=== PATIENT | male | born 1945 | race Caucasian/White ===

== ENCOUNTER 2019-03-19 16:15 | Observation (INO) | payer MEDICARE, OTHER ==
[2019-03-19] MEDS ORDERED: Nitroglycerin 2% Ointment 1 INCH/1 GM Packet ONE (16:54)
[2019-03-19] MEDS ORDERED: methylPREDNISolone Sod Succ/PF 125 MG/2 ML VIAL ONE (16:54)
[2019-03-19 16:59] LABS: #Basophils 0.1 thou/uL (0.0-0.2); #Eosinphils 1.4 thou/uL (0.0-0.7); #Lymphocytes 1.8 thou/uL (1.20-3.40); #Monocytes 0.7 thou/uL (0.11-0.59); #Neutrophils 5.3 thou/uL (1.40-6.50); %Basophils 1.4 % (0.0-1.0); %Eosinophils 14.7 % (0.0-10.0); %Lymphocytes 19.1 % (21.0-51.0); %Neutrophils 57.8 % (42.0-75.0); Hemoglobin 11.9 g/dL (14.0-18.0); Mean Corpuscular Hemoglobin 29.8 pg (27.0-31.0); Mean Corpuscular Volume 90.2 fL (78.0-98.0); Mean Platelet Volume 6.9 fL (7.4-10.4); Platelet Count 175 thou/uL (130-400); RBC Distribution Width 15.3 % (11.5-14.5); Red Blood Cell (RBC) Count 4.01 mill/uL (4.70-6.10); White Blood Cell (WBC) Count 9.2 thou/uL (4.8-10.8)
[2019-03-19 17:18] LABS: ALT (SGPT) 18 U/L (8-55); AST (SGOT) 17 U/L (5-34); Albumin 3.9 g/dL (3.4-4.8); Alkaline Phosphatase 74 U/L (40-150); Anion Gap 13 mmol/L (10-20); BUN (Urea Nitrogen) 28 mg/dL (8.4-25.7); Bilirubin, Total 0.2 mg/dL (0.2-1.2); Calc. Creatinine Clearance 0 mL/min (70-130); Calcium 9.3 mg/dL (7.8-10.44); Carbon Dioxide 27 mmol/L (23-31); Chloride 105 mmol/L (98-107); Estimated GFR-MDRD 38; Globulin 2.7 g/dL (2.4-3.5); Glucose 117 mg/dL (83-110); Potassium 4.1 mmol/L (3.5-5.1); Protein, Total 6.6 g/dL (5.8-8.1); Sodium 141 mmol/L (136-145)
--- NOTE | 2019-03-19 17:30 | RAD ---
PORTABLE CHEST: 03/19/19 HISTORY: Dyspnea. COMPARISON: 07/04/15. Mild cardiomegaly. Mild vascular engorgement. No infiltrate or significant effusion. IMPRESSION: No acute process. POS: FA[facility]
[2019-03-19] MEDS ORDERED: Aspirin 325 MG TAB ONE (17:35)
[2019-03-19] MEDS ORDERED: cefTRIAXone\\ROCEPHIN 2 GM VIAL ONE (18:44)
[2019-03-19 20:08] VITALS: BMI 35.7
[2019-03-19 20:40] LABS: Troponin I 0.028 ng/mL (< 0.028)
[2019-03-19] MEDS ORDERED: Acetaminophen 650 MG Suppository PR PRN (21:52)
[2019-03-19] MEDS ORDERED: Ondansetron ODT 4 MG TAB PO PRN (21:52)
[2019-03-19] MEDS ORDERED: Acetaminophen 325 MG TAB PO PRN (21:52)
[2019-03-19] MEDS ORDERED: Senokot S 8.6-50 MG TAB PO PRN (21:52)
[2019-03-19] MEDS ORDERED: Ondansetron PF 4 MG/2 ML Vial IVP PRN (21:52)
[2019-03-19] MEDS ORDERED: Melatonin 3 MG TAB PO SCH (22:00)
[2019-03-19] MEDS ORDERED: Sodium Chloride 0.9% 1,000 ML IV SCH (22:15)
[2019-03-19] MEDS: Benzonatate 100 MG CAP PO SCH (22:23)
[2019-03-19] MEDS ORDERED: Atorvastatin Calcium 20 MG TAB PO SCH (22:30)
[2019-03-19] MEDS ORDERED: Temazepam 15 MG CAP PO PRN (22:39)
[2019-03-19] MEDS ORDERED: Famotidine/PF 20 mg/2ml Vial SLOW IVP SCH (23:15)
[2019-03-19 23:36] LABS: Troponin I 0.027 ng/mL (< 0.028)
--- NOTE | 2019-03-20 03:22 | HP ---
CHIEF COMPLAINT: Persistent cough. HISTORY OF PRESENT ILLNESS: Mr. Park is a 73-year-old man who presents complaining of a 6-month history of persistent coughing fits and post-tussive emesis. The patient states he has been seen at the [facility] multiple times, however, has no help except for refilling of his medications. He states nothing has been done to look into his symptoms. The patient reports that the cough has been significant for the last 6 months, somewhat prompted him to come in, but it was not any worse from usual, but that he is tired of dealing with it and not having any help addressing what the underlying problem is. The patient states the post-tussive emesis occurs up to 1 hour after eating. If he has anything, he has episodes of coughing fits followed by dry heaving. He denies any productive cough or hemoptysis. Denies having any chest pain, palpitations, or shortness of breath. He does describe generalized discomfort in the chest associated with constant coughing. Denies having any abdominal pain or cramping. He has noted in the last several weeks increased difficulty with breathing when he is lying flat. The patient states he feels that he cannot catch his breath. His activity level is limited by the cough and overall shortness of breath. He denies being diagnosed with COPD in the past or having any underlying asthma. REVIEW OF SYSTEMS: All other review of systems apart from those mentioned above in HPI are negative. PAST MEDICAL HISTORY: 1. Peripheral neuropathy. 2. GERD. 3. Hyperlipidemia. 4. Hypertension. 5. Bipolar disorder. 6. Depression. PAST SURGICAL HISTORY: 1. Kidney stone. 2. Tonsillectomy. SOCIAL HISTORY: The patient drinks alcohol socially, which he states is usually once every several months. Denies smoking currently, but did smoke cigars several years ago. Denies any illicit drug use. ALLERGIES: TRAMADOL. CURRENT MEDICATIONS: 1. Fluoxetine. 2. Allopurinol. 3. Vitamin B12. 4. Prozac. 5. Lipitor. 6. Naproxen. 7. Protonix. PHYSICAL EXAMINATION: GENERAL: The patient appears well developed, overweight, in no acute distress. VITAL SIGNS: Temperature 98.2, pulse 79, respirations 18, O2 saturation 92% on room air, blood pressure 159/75. HEENT: Normocephalic and atraumatic. Pupils are equal, round, and reactive to light. Sclerae icterus. Oropharynx is clear. NECK: Supple without lymphadenopathy. LUNGS: Diffuse wheezing in bilateral upper lung liu with coarse breath sounds at the bilateral bases and rubs present on the left lower lung base. Chest wall discomfort with palpation along the sternum, also with certain movements. CARDIAC: Regular rate and rhythm. ABDOMEN: Obese, nontender, nondistended. No guarding or rigidity. EXTREMITIES: Mild lower extremity edema. NEUROLOGIC: Alert and oriented x3. SKIN: Without rash or jaundice. LABORATORY DATA: White blood count 9.2, hemoglobin 11.9, hematocrit 36, platelets 175. Sodium 141, potassium 4.1, chloride 105, carbon dioxide 27, anion gap 13, BUN 28, creatinine 1.76, GFR 38, glucose 117, lactic acid 0.8, calcium 9.3. Total bilirubin 0.2. LFTs unremarkable. Troponin 0.025, 0.027. BNP 77.9. Albumin 3.9. IMAGING DATA: Chest x-ray on 03/19/2019, no acute process. IMPRESSION AND PLAN: Mr. Park is a 73-year-old man who is being admitted for management of the followin. Chronic severe cough. The patient states he has had persistent coughing fits and post-tussive emesis for the last 6 months. Denies any hemoptysis. Reports mild soreness of the chest. Has not been on any medications to help alleviate his cough. We will begin Tessalon as well as guaifenesin and we will provide DuoNeb q.4 hours scheduled given the evident wheezing and coarse breath sounds on exam. Chest x- ray was negative. We will obtain a CT of the chest for further evaluation. Continue to monitor O2 saturations. 2. Orthopnea/shortness of breath. The patient with normal BNP. No evidence of fluid overload on chest x-ray. Trace bilateral lower extremity edema. Day team to review and assess if echocardiogram indicated at this present time. 3. Hypertension. Resume home medications and monitor blood pressure. 4. Gastrointestinal prophylaxis. 5. Deep venous thrombosis prophylaxis with mechanical SCDs. 6. Full code status. His surrogate decision maker is his son, Moncho Park. The patient's case was discussed with attending who agrees with the plan of care as described above. Job ID: [id number] [facility]
[2019-03-20 05:18] VITALS: BP 159/75
[2019-03-20 05:48] LABS: #Lymphocytes 0.9 thou/uL (1.20-3.40); #Monocytes 0.1 thou/uL (0.11-0.59); %Basophils 0.1 % (0.0-1.0); %Eosinophils 0.2 % (0.0-10.0); %Monocytes 0.9 % (0.0-10.0); %Neutrophils 89.8 % (42.0-75.0); Hemoglobin 11.6 g/dL (14.0-18.0); Mean Corpuscular HGB CONC 33.2 g/dL (32.0-36.0); Mean Corpuscular Hemoglobin 30.9 pg (27.0-31.0); Mean Corpuscular Volume 93.2 fL (78.0-98.0); Mean Platelet Volume 7.6 fL (7.4-10.4); Platelet Count 205 thou/uL (130-400); RBC Distribution Width 14.9 % (11.5-14.5); Red Blood Cell (RBC) Count 3.76 mill/uL (4.70-6.10)
[2019-03-20 06:06] LABS: Anion Gap 16 mmol/L (10-20); BUN (Urea Nitrogen) 32 mg/dL (8.4-25.7); Calc. Creatinine Clearance 52 mL/min (70-130); Calcium 9.5 mg/dL (7.8-10.44); Carbon Dioxide 21 mmol/L (23-31); Chloride 105 mmol/L (98-107); Estimated GFR-MDRD 33; Glucose 159 mg/dL (83-110); Potassium 4.1 mmol/L (3.5-5.1); Sodium 138 mmol/L (136-145)
[2019-03-20 08:17] VITALS: TEMP 97.9
--- NOTE | 2019-03-20 08:30 | CT ---
CT CHEST WITHOUT CONTRAST: HISTORY: Persistent cough, increasing shortness of breath, orthopnea. FINDINGS: Absence of IV contrast reduces the sensitivity of the exam particularly for the evaluation of mediast inal, hilar and vascular structures. A small pericardial effusion is noted. No pleural effusions are seen. There are vascular calcificatio ns without evidence of aneurysmal dilatation of the thoracic aorta. The tracheobronchial tree is patent. No pneumothoraces, lobar consolidation, pulmonary nodules or mas ses are seen. There are degenerative changes in the spine. A small hiatal hernia is present. IMPRESSION: 1. Small pericardial effusion 2. Small hiatal hernia
[2019-03-20] MEDS ORDERED: Hydrochlorothiazide 25 MG TAB PO SCH ×2 (09:00→21:00)
[2019-03-20] MEDS ORDERED: Amlodipine 10 MG TAB PO SCH ×2 (09:00→21:00)
[2019-03-20] MEDS ORDERED: Allopurinol 300 MG TAB PO SCH ×2 (09:00→21:00)
[2019-03-20] MEDS ORDERED: guaiFENesin ER 600 MG TAB PO SCH (09:00)
[2019-03-20] MEDS ORDERED: FLUoxetine HCl 20 MG CAP PO SCH ×2 (09:00→21:00)
[2019-03-20] MEDS ORDERED: Doxazosin Mesylate 4 MG TAB PO SCH ×2 (09:00→21:00)
[2019-03-20] MEDS ORDERED: Famotidine/PF 20 mg/2ml Vial SLOW IVP SCH ×2 (09:00→21:00)
[2019-03-20] MEDS: Benzonatate 100 MG CAP PO SCH (10:20)
--- NOTE | 2019-03-20 10:41 | PDOC.EVN ---
Event Note - Event Note Event Note: patient seen, discussed with ERNESTO Hinds. concur with management and discharge
[2019-03-20] MEDS ORDERED: Atorvastatin Calcium 20 MG TAB PO SCH (21:00)
[2019-03-20] MEDS ORDERED: Melatonin 3 MG TAB PO SCH (21:00)
== END 2019-03-20 11:29 | disposition home or self-care (01) ==
LOC: SCSER 16:15 → 2SW 19:49
PROVIDERS: ADMIT Emergency Medicine; ATTEND Emergency Medicine
DX: R05 Cough (principal); I31.3 Pericardial effusion (noninflammatory); K44.9 Diaphragmatic hernia without obstruction or gangrene; I10 Essential (primary) hypertension; E78.5 Hyperlipidemia, unspecified; G62.9 Polyneuropathy, unspecified; F32.9 Major depressive disorder, single episode, unspecified; K21.9 Gastro-esophageal reflux disease without esophagitis; E66.9 Obesity, unspecified; Z68.35 Body mass index [BMI] 35.0-35.9, adult; Z79.899 Other long term (current) drug therapy; Z87.891 Personal history of nicotine dependence; Z88.8 Allergy status to other drugs, medicaments and biological substances
CPT/HCPCS: 36415; 71045; 71250; 80048; 80053; 83605; 83880; 84484; 85025; 87040; 93005; 96361; 96374; 96375; G0378; J0696; J2930; J7620; S0028

== ENCOUNTER 2020-09-03 05:43 | Inpatient (IN) | payer MEDICARE ==
[2020-09-03] MEDS ORDERED: Albuterol Sulfate 2.5 mg/3 ml Neb ONE (06:31)
[2020-09-03 06:46] LABS: Actual Bicarbonate (HCO3a) 20.4 mEq/L (22-28); Analyzer IN Cardio ER; Base Excess (BEa) -6.7 mEq/L (-2.0 to +3.0); Calcium, Ionized (arterial) 1.24 mmol/L (1.12-1.30); Carboxyhemoglobin (COHb) 0.5 gm% (0.0-3.0); Hemoglobin (Hb) 13.2 g/dL (14.0-18.0); O2 Tension (PaO2), arterial 78.8 mmHg (> 70.0); Potassium - ABG Lab 4.02 mmol/L (3.70-5.30); pH, Arterial 7.26 (7.35-7.45)
[2020-09-03 06:50] LABS: Puncture Site RRA
[2020-09-03] MEDS ORDERED: Lorazepam 2 MG/ML VIAL ONE (07:35)
[2020-09-03] MEDS ORDERED: Ketamine 50 MG/ML (10ML VIAL) ONE (08:07)
--- NOTE | 2020-09-03 09:40 | PDOC.HHP ---
Hospitalist HPI - History of Present Illness sob History of Present Illness: This is a 75-year-old male patient with a history of diabetes mellitus, peripheral neuropathy, GERD, hyperlipidemia, hypertension and 2 recent recurrent pneumonias, bipolar disorder, depression who was brought in by his son today on account of altered mental status and hypoxia. He first was sent to [facility] from her he was transferred here. His Covid test was negative at [facility]. At the time of my evaluation patient was somnolent secondary to being given ketaminecould not provide any history. His son provided all the history. According to his son his father has been having worsening general cognitive decline for the past few months and has also had recurrent pneumonias lately. He notes he was walking about his dog today and he goes to check on his father and he was not in his bed. He found him slumped in a chair confused and unresponsive. He had no associated fevers, cough or chest pain. He sent him to [facility] from where he was evaluated and transferred here. At [facility] his WBC was 10.7, hemoglobin 12.2, platelets 179, troponin less than 0.05, BNP 29.8, sodium 142, potassium 4.5, bicarb 25 BUN 39, creatinine 1.8, lactate 1.09, magnesium 2.0 and phosphorus 4.3. Liver enzymes were within normal limits. EKG showed no indications of ischemia. he was given breathing treatments, ceftriaxone and Solu-Medrol as well as azithromycin. At presentation blood pressure was 152/60, pulse 80, respiratory rate 12, tem perature 98.3 saturation 95% on 2 L. At presentation he was noted to become more confused and was hallucinating. His ABG showed pH of 7.26, PCO2 of 47.0, PO2 of 78. He was placed on BiPAP and due to be sent to [facility]. In the ED became more confused and ripped off his IV line, he was given ketamine which calm down to some extent. At the time of my evaluation he was saturating at 2 L of oxygen at between 90 and 92 with intermittent pain to the 80s when he had brief apnic periods. Hospitalist ROS - Review of Systems ROS unobtainable: due to mental status - Medication Medications: Refer to ambulatory order list. Allergies: Tramadol Hospitalist History - Past Medical History Other Medical History: peripheral neuropathy, GERD, hyperlipidemia, hypertension, pneumonia, bipolar disorder, depression - Past Surgical History Other Surgical History: Esophageal dilation - Family History Family History: reports: cancer, diabetes mellitus - Social History Smoking Status: Never smoker - Exam General - other findings: In bed, somnolent and restrained. Heart: RRR, no murmur, no gallops, no rubs, normal peripheral pulses Respiratory - other findings: Reduced air entry bilaterally, no wheeze or rales. Gastrointestinal: soft, non-distended, normal bowel sounds Extremities: no cyanosis, no clubbing, 1+ LE edema Neurological - other findings: Patient somnolent Hospitalist Results - Labs Lab results: ABG pH 7.26 (7.35-7.45) L 09/03/20 06:45 ABG pCO2 47.0 mmHg (35.0-45.0) H 09/03/20 06:45 ABG pO2 78.8 mmHg (> 70.0) H 09/03/20 06:45 Hospitalist H&P A/P - Plan Plan: This is a 75-year-old male patient with a history of diabetes mellitus, hypertension, depression, bipolar disorder presenting with altered mental status and worsening shortness of breath. He was placed on BiPAP on account of elevated CO2. Will not monitor him repeat ABG and if acceptable however admit him in IMCU Acute hypoxic, hypercarbic respiratory failure Possible heart failure, COPD exacerbation, GINA PCO2 elevated at 47 and required BiPAP now currently off. Repeat ABG Continue oxygen therapy Monitor closely. As needed BiPAP Possible COPD exacerbation No formal diagnosis of COPD however Duo nebs, steroids, antibiotics He will need spirometry evaluation once stable. Possible heart failure BNP was however reduced in outside hospital. However has edema Echocardiogram today. Acute encephalopathy Unclear etiologypossible CO2 retention. CT scan of the head is negative. We will check urine drug screen GINA CPAP at night CODE STATUSfull VT prophylaxisLovenox
[2020-09-03 10:20] LABS: Analyzer IN Cardio ER; Base Excess (BEa) -4.8 mEq/L (-2.0 to +3.0); CO2 Tension 48.1 mmHg (35.0-45.0); Calcium, Ionized (arterial) 1.25 mmol/L (1.12-1.30); Carboxyhemoglobin (COHb) 0.2 gm% (0.0-3.0); Hemoglobin (Hb) 12.4 g/dL (14.0-18.0); O2 Tension (PaO2), arterial 115.5 mmHg (> 70.0); Potassium - ABG Lab 4.16 mmol/L (3.70-5.30); pH, Arterial 7.28 (7.35-7.45)
[2020-09-03 10:22] LABS: Puncture Site RRA
[2020-09-03 10:24] LABS: ALV-art Gradient 24.015 mmHg (0-20)
--- NOTE | 2020-09-03 11:10 | CT ---
CT BRAIN WITHOUT CONTRAST: HISTORY: Altered mental status. COMPARISON: 02/22/2012. FINDINGS: No evidence of acute infarct, hemorrhage, midline, or abnormal extraaxial fluid collections are seen. The ventricular size is appropriate and the basilar cisterns are patent. The bony calvarium is int act. There are postop changes in the maxillary sinus. IMPRESSION: No CT evidence of acute intracranial process. POS: AH
[2020-09-03] MEDS ORDERED: Dextrose 50% Abboject 50 ML SYRINGE SLOW IVP PRN (14:22)
[2020-09-03] MEDS ORDERED: HumaLOG 300 UNITS/3 ML VIAL SC PRN (14:22)
[2020-09-03] MEDS ORDERED: Dextrose 5% in Water 1,000 ML IV PRN (14:22)
[2020-09-03 15:40] LABS: Lactic Acid 0.9 mmol/L (0.5-2.2)
[2020-09-03 16:08] VITALS: BMI 36.0
[2020-09-03 17:58] LABS: Actual Bicarbonate (HCO3a) 24.4 mEq/L (22-28); Base Excess (BEa) -3.1 mEq/L (-2.0 to +3.0); CO2 Tension 53.2 mmHg (35.0-45.0); Calcium, Ionized (arterial) 1.32 mmol/L (1.12-1.30); O2 Tension (PaO2), arterial 83.8 mmHg (> 70.0); Potassium - ABG Lab 4.48 mmol/L (3.70-5.30); pH, Arterial 7.28 (7.35-7.45)
[2020-09-03 17:59] LABS: Puncture Site RRA
--- NOTE | 2020-09-04 00:13 | PDOC.FMACP ---
Advance Care Planning - Note Summary: Advanced Care Planning was discussed. The diagnosis, prognosis and goals of care were discussed. Patient is full code His son is surrogate decision-maker. He has DURABLE POWER OF TANK TENDER
[2020-09-04] MEDS: Pregabalin 75 MG CAP PO SCH (08:11)
[2020-09-04] MEDS: FLUoxetine HCl 20 MG CAP PO SCH (08:13)
[2020-09-04] MEDS: Allopurinol 300 MG TAB PO SCH (08:13)
[2020-09-04] MEDS: hydrALAZINE 25 MG TAB PO SCH (08:13)
[2020-09-04] MEDS: Enoxaparin Sodium 40 MG/0.4 ML SYRINGE SC SCH (08:14)
[2020-09-04] MEDS ORDERED: Furosemide 40 MG/4 ML VIAL SLOW IVP SCH (09:00)
[2020-09-04] MEDS ORDERED: FLU VACC QS2020-21(65YR UP)/PF 240 MCG/0.7 ML SYRINGE IM ONE (09:00)
[2020-09-04] MEDS ORDERED: Hydrocortisone Sod Succ/PF 250 mg/2 ml Vial SLOW IVP SCH (09:00)
[2020-09-04] MEDS ORDERED: Hydrocortisone Sod Succ/PF 100 mg/2 ml Vial IVP SCH (09:00)
[2020-09-04 09:19] LABS: Amphetamine Not Detected (NotDetected); Barbiturates Screen Not Detected (NotDetected); Benzodiazepine Screen Detected (NotDetected); Cocaine Metabolite Screen Not Detected (NotDetected); Medtox Control Line Valid? VALID (VALID); Medtox Reader # READER 1; Methadone Not Detected (NotDetected); Methamphetamine Not Detected (NotDetected); Opiate Screen Detected (NotDetected); Oxycodone Screen Not Detected (NotDetected); Phencyclidine (PCP) Not Detected (NotDetected); THC/Cannabinoid Screen Not Detected (NotDetected); Tricyclic Screen Not Detected (NotDetected)
[2020-09-04] MEDS ORDERED: Acetaminophen/Codeine 30-300mg Tablet PO PRN (09:58)
[2020-09-04 10:21] LABS: #Lymphocytes 1.7 thou/uL (1.20-3.40); #Monocytes 0.8 thou/uL (0.11-0.59); #Neutrophils 7.6 thou/uL (1.40-6.50); %Basophils 0.1 % (0.0-1.0); %Eosinophils 0.2 % (0.0-10.0); %Lymphocytes 16.9 % (21.0-51.0); %Monocytes 8.2 % (0.0-10.0); %Neutrophils 74.6 % (42.0-75.0); Hemoglobin 11.5 g/dL (14.0-18.0); Mean Corpuscular HGB CONC 33.4 g/dL (32.0-36.0); Mean Corpuscular Hemoglobin 32.9 pg (27.0-31.0); Mean Corpuscular Volume 98.5 fL (78.0-98.0); Mean Platelet Volume 7.3 fL (7.4-10.4); Platelet Count 183 thou/uL (130-400); Red Blood Cell (RBC) Count 3.49 mill/uL (4.70-6.10); White Blood Cell (WBC) Count 10.2 thou/uL (4.8-10.8)
[2020-09-04 10:46] LABS: ALT (SGPT) 11 U/L (8-55); AST (SGOT) 18 U/L (5-34); Albumin 3.5 g/dL (3.4-4.8); Alkaline Phosphatase 57 U/L (40-110); Anion Gap 15 mmol/L (10-20); BUN (Urea Nitrogen) 46 mg/dL (8.4-25.7); Bilirubin, Total 0.3 mg/dL (0.2-1.2); Calc. Creatinine Clearance 53 mL/min (70-130); Calcium 9.2 mg/dL (7.8-10.44); Carbon Dioxide 23 mmol/L (23-31); Chloride 107 mmol/L (98-107); Globulin 2.6 g/dL (2.4-3.5); Glucose 148 mg/dL (83-110); Potassium 3.9 mmol/L (3.5-5.1); Protein, Total 6.1 g/dL (5.8-8.1); Sodium 141 mmol/L (136-145)
[2020-09-04] MEDS: Azithromycin 500 MG in Sodium Chloride 0.9% 250 ML 250 ML IVPB SCH (11:42)
--- NOTE | 2020-09-04 13:48 | PDOC.HOSPP ---
- Subjective Encounter Date: 09/04/20 Encounter Time: 13:00 Subjective: pt up in bed oriented x2. - Objective Vital Signs & Weight: Vital Signs (12 hours) Temp Pulse Resp BP Pulse Ox 09/04/20 11:47 98.3 F 09/04/20 10:51 88 19 96 09/04/20 08:13 80 188/80 H 09/04/20 08:00 100 09/04/20 07:30 67 16 96 09/04/20 07:10 98.3 F 09/04/20 04:27 60 100 09/04/20 04:25 98 09/04/20 03:39 97.4 F L Weight Weight 251 lb Most Recent Monitor Data Heart Rate from ECG 89 NIBP 148/75 NIBP BP-Mean 99 Respiration from ECG 21 SpO2 95 I&O: 09/03/20 09/04/20 09/05/20 06:59 06:59 06:59 Intake Total 245 720 Balance 245 720 Result Diagrams: 09/04/20 10:12 09/04/20 10:12 Additional Labs: Accuchecks 09/04/20 09/04/20 09/03/20 11:47 05:39 20:10 POC Glucose 79 119 H 198 H 09/03/20 17:37 POC Glucose 139 H Hospitalist ROS - Review of Systems Cardiovascular: denies: chest pain, palpitations, orthopnea, paroxysmal noc. dyspnea, edema, light headedness, other Gastrointestinal: denies: nausea, vomiting, abdominal pain, diarrhea, consti pation, melena, hematochezia, other Genitourinary: denies: dysuria, frequency, incontinence, hematuria, retention, other - Medication Medications: Active Medications Generic Name Dose Route Start Last Admin Trade Name Freq PRN Reason Stop Dose Admin Albuterol/Ipratropium 3 ml 09/03/20 10:30 09/04/20 10:51 Ipratropium/Albuterol Sulfate 3 Ml Neb NEB 3 ml [id number] PERRY Administration Allopurinol 300 mg 09/04/20 09:00 09/04/20 08:13 Allopurinol 300 Mg Tab PO 300 mg DAILY PERRY Administration Enoxaparin Sodium 40 mg 09/04/20 09:00 09/04/20 08:14 Enoxaparin Sodium 40 Mg/0.4 Ml Syringe SC 40 mg 0900 PERRY Administration Fluoxetine HCl 40 mg 09/04/20 09:00 09/04/20 08:13 Fluoxetine Hcl 20 Mg Cap PO 40 mg DAILY PERRY Administration Hydralazine HCl 25 mg 09/04/20 09:00 09/04/20 08:13 Hydralazine 25 Mg Tab PO 25 mg DAILY PERRY Administration Azithromycin 500 mg/ Sodium 250 mls @ 250 mls/hr 09/04/20 12:00 09/04/20 11:42 Chloride IVPB 250 mls Q24HR PERRY Administration Pregabalin 300 mg 09/04/20 09:00 09/04/20 08:11 Pregabalin 75 Mg Cap PO 300 mg DAILY PERRY Administration - Exam Heart: negative: RRR, no murmur, no gallops, no rubs, normal peripheral pulses, irregular, diminshed peripheral pulses, murmur present, II/IV, III/IV Respiratory: negative: CTAB, no wheezes, no rales, no ronchi, normal chest expansion, no tachypnea, normal percussion, rales, rhonchi, tachypneic, wheezes Gastrointestinal: negative: soft, non-tender, non-distended, normal bowel sounds, no palpable masses, no hepatomegaly, no splenomegaly, no bruit, no guarding, no rigidity, tender to palpation, distended, diminished bowl sounds, voluntary guarding Extremities: 1+ LE edema Hosp A/P (1) Acute metabolic encephalopathy Code(s): G93.41 - METABOLIC ENCEPHALOPATHY Status: Acute (2) SOB (shortness of breath) Code(s): R06.02 - SHORTNESS OF BREATH Status: Acute (3) CKD (chronic kidney disease) Code(s): N18.9 - CHRONIC KIDNEY DISEASE, UNSPECIFIED Status: Acute (4) Acute hypercapnic respiratory failure Code(s): J96.02 - ACUTE RESPIRATORY FAILURE WITH HYPERCAPNIA Status: Acute - Plan pt did well on bipap last night. will check tsh/vit b12 level. His ct head negative. will continue abx and steroids for his sob. His bnp was normal. echo ordered. will get case management for placement. pt has anxiety/depression and has PTSD. pt has not had a dx of dementia but per son he does have it. pt's covid is negative. pt was given ketamine bc he was very aggressive in the ER.
[2020-09-04] MEDS ORDERED: methylPREDNISolone Sod Succ 40 MG VIAL IVP SCH (14:15)
[2020-09-04] MEDS ORDERED: Diazepam 5 MG TAB PO SCH (15:15)
[2020-09-04] MEDS: Melatonin 3 MG TAB PO SCH (21:06)
[2020-09-04] MEDS: Atorvastatin Calcium 20 MG TAB PO SCH (21:06)
[2020-09-04] MEDS: traZODone HCl 50 MG TAB PO SCH (21:06)
[2020-09-05 04:23] LABS: Thyroid Stimulating Hormone 0.3893 uIU/mL (0.35-4.94)
[2020-09-05] MEDS: Enoxaparin Sodium 40 MG/0.4 ML SYRINGE SC SCH (10:17)
[2020-09-05] MEDS: Pregabalin 75 MG CAP PO SCH (10:19)
[2020-09-05] MEDS: hydrALAZINE 25 MG TAB PO SCH (10:19)
[2020-09-05] MEDS: Doxazosin Mesylate 4 MG TAB PO SCH (10:20)
[2020-09-05] MEDS: Furosemide 40 MG TAB PO SCH (10:20)
[2020-09-05] MEDS: Ferrous Sulfate 325 MG TAB PO SCH (10:21)
[2020-09-05] MEDS: Glimepiride 1 MG TAB PO SCH (10:21)
[2020-09-05] MEDS: Multivitamin W/ Minerals 1 TAB PO SCH (10:21)
[2020-09-05] MEDS: Allopurinol 300 MG TAB PO SCH (10:21)
[2020-09-05] MEDS: Potassium Chloride 20 MEQ TAB PO SCH (10:21)
[2020-09-05] MEDS: Diazepam 5 MG TAB PO SCH (10:21)
[2020-09-05] MEDS: FLUoxetine HCl 20 MG CAP PO SCH (10:21)
[2020-09-05] MEDS: methylPREDNISolone Sod Succ 40 MG VIAL IVP SCH (10:22)
[2020-09-05] MEDS: Azithromycin 500 MG in Sodium Chloride 0.9% 250 ML 250 ML IVPB SCH (11:51)
--- NOTE | 2020-09-05 17:05 | PDOC.HOSPP ---
- Subjective Encounter Date: 09/05/20 Encounter Time: 11:15 Subjective: pt up in bed no complains - Objective Vital Signs & Weight: Vital Signs (12 hours) Temp Pulse Resp BP Pulse Ox 09/05/20 15:39 98.6 F 09/05/20 11:14 97.8 F 09/05/20 10:48 62 18 96 09/05/20 10:19 61 170/67 H 09/05/20 08:00 98 09/05/20 07:34 56 L 15 97 09/05/20 07:33 58 L 16 93 L 09/05/20 07:10 97.4 F L Weight Weight 251 lb Most Recent Monitor Data Heart Rate from ECG 68 NIBP 136/54 NIBP BP-Mean 81 Respiration from ECG 16 SpO2 94 I&O: 09/04/20 09/05/20 09/06/20 06:59 06:59 06:59 Intake Total 245 1445 Output Total 1350 1075 Balance 245 95 -1075 Result Diagrams: 09/04/20 10:12 09/04/20 10:12 Additional Labs: Accuchecks 09/05/20 09/05/20 09/05/20 16:37 05:33 05:17 POC Glucose 120 H 120 H 130 H 09/04/20 20:23 POC Glucose 131 H Hospitalist ROS - Review of Systems Cardiovascular: denies: chest pain, palpitations, orthopnea, paroxysmal noc. dyspnea, edema, light headedness, other Gastrointestinal: denies: nausea, vomiting, abdominal pain, diarrhea, constipation, melena, hematochezia, other Genitourinary: denies: dysuria, frequency, incontinence, hematuria, retention, other - Medication Medications: Active Medications Generic Name Dose Route Start Last Admin Trade Name Freq PRN Reason Stop Dose Admin Albuterol/Ipratropium 3 ml 09/03/20 10:30 09/05/20 10:48 Ipratropium/Albuterol Sulfate 3 Ml Neb NEB 3 ml [id number] PERRY Administration Allopurinol 300 mg 09/04/20 09:00 09/05/20 10:21 Allopurinol 300 Mg Tab PO 300 mg DAILY PERRY Administration Atorvastatin Calcium 20 mg 09/04/20 21:00 09/04/20 21:06 Atorvastatin Calcium 20 Mg Tab PO 20 mg HS PERRY Administration Diazepam 5 mg 09/05/20 09:00 09/05/20 10:21 Diazepam 5 Mg Tab PO 5 mg DAILY PERRY Administration Doxazosin Mesylate 8 mg 09/05/20 09:00 09/05/20 10:20 Doxazosin Mesylate 4 Mg Tab PO 8 mg DAILY PERRY Administration Enoxaparin Sodium 40 mg 09/04/20 09:00 09/05/20 10:17 Enoxaparin Sodium 40 Mg/0.4 Ml Syringe SC 40 mg 0900 PERRY Administration Ferrous Sulfate 325 mg 09/05/20 09:00 09/05/20 10:21 Ferrous Sulfate 325 Mg Tab PO 325 mg DAILY PERRY Administration Fluoxetine HCl 40 mg 09/04/20 09:00 09/05/20 10:21 Fluoxetine Hcl 20 Mg Cap PO 40 mg DAILY PERRY Administration Furosemide 40 mg 09/05/20 09:00 09/05/20 10:20 Furosemide 40 Mg Tab PO 40 mg DAILY PERRY Administration Glimepiride 1 mg 09/05/20 08:00 09/05/20 10:21 Glimepiride 1 Mg Tab PO 1 mg QAM-WM PERRY Administration Hydralazine HCl 25 mg 09/04/20 09:00 09/05/20 10:19 Hydralazine 25 Mg Tab PO 25 mg DAILY PERRY Administration Azithromycin 500 mg/ Sodium 250 mls @ 250 mls/hr 09/04/20 12:00 09/05/20 11:51 Chloride IVPB 250 mls Q24HR PERRY Administration Iron/Minerals/Multivitamins 1 tab 09/05/20 09:00 09/05/20 10:21 Multivitamin W/ Minerals 1 Tab PO 1 tab DAILY PERRY Administration Melatonin 6 mg 09/04/20 21:00 09/04/20 21:06 Melatonin 3 Mg Tab PO 6 mg HS PERRY Administration Methylprednisolone Sodium Succinate 40 mg 09/05/20 09:00 09/05/20 10:22 Methylprednisolone Sod Succ 40 Mg Vial IVP 40 mg DAILY PERRY Administration Potassium Chloride 20 meq 09/05/20 09:00 09/05/20 10:21 Potassium Chloride 20 Meq Tab PO 20 meq DAILY PERRY Administration Pregabalin 300 mg 09/04/20 09:00 09/05/20 10:19 Pregabalin 75 Mg Cap PO 300 mg DAILY PERRY Administration Trazodone HCl 100 mg 09/04/20 21:00 11/14/20 21:06 Trazodone Hcl 50 Mg Tab PO 100 mg HS PERRY Administration - Exam Heart: negative: RRR, no murmur, no gallops, no rubs, normal peripheral pulses, irregular, diminshed peripheral pulses, murmur present, II/IV, III/IV Respiratory: rhonchi Gastrointestinal: negative: soft, non-tender, non-distended, normal bowel sounds, no palpable masses, no hepatomegaly, no splenomegaly, no bruit, no guarding, no rigidity, tender to palpation, distended, diminished bowl sounds, voluntary guarding Hosp A/P (1) Acute metabolic encephalopathy Code(s): G93.41 - METABOLIC ENCEPHALOPATHY Status: Acute (2) SOB (shortness of breath) Code(s): R06.02 - SHORTNESS OF BREATH Status: Acute (3) CKD (chronic kidney disease) Code(s): N18.9 - CHRONIC KIDNEY DISEASE, UNSPECIFIED Status: Acute (4) Acute hypercapnic respiratory failure Code(s): J96.02 - ACUTE RESPIRATORY FAILURE WITH HYPERCAPNIA Status: Acute - Plan pt did well on bipap last night. will check tsh/vit b12 level. His ct head ne gative. will continue abx and steroids for his sob. His bnp was normal. echo ordered. will get case management for placement. pt has anxiety/depression and has PTSD. pt has not had a dx of dementia but per son he does have it. pt's covid is negative. pt was given ketamine bc he was very aggressive in the ER. 09/05 will continue current tx. pt does not want to go to snf. echo no acute changes. will get PT to see pt.
[2020-09-05] MEDS: traZODone HCl 50 MG TAB PO SCH (20:46)
[2020-09-05] MEDS: Atorvastatin Calcium 20 MG TAB PO SCH (20:46)
[2020-09-05] MEDS: Melatonin 3 MG TAB PO SCH (20:47)
[2020-09-06] MEDS ORDERED: cloNIDine 0.1 MG TAB PO SCH (06:00)
[2020-09-06] MEDS ORDERED: Cyanocobalamin (Vitamin B-12) 1,000 MCG TAB PO SCH (09:00)
[2020-09-06] MEDS ORDERED: Ziprasidone 20 MG VIAL IM PRN (09:26)
[2020-09-06] MEDS ORDERED: Sterile Water 10 ML VIAL FS PRN (09:30)
[2020-09-06] MEDS: Pregabalin 75 MG CAP PO SCH (09:41)
[2020-09-06] MEDS: FLUoxetine HCl 20 MG CAP PO SCH (09:42)
[2020-09-06] MEDS: Ferrous Sulfate 325 MG TAB PO SCH (09:42)
[2020-09-06] MEDS: Potassium Chloride 20 MEQ TAB PO SCH (09:43)
[2020-09-06] MEDS: Multivitamin W/ Minerals 1 TAB PO SCH (09:43)
[2020-09-06] MEDS: Allopurinol 300 MG TAB PO SCH (09:43)
[2020-09-06] MEDS: Furosemide 40 MG TAB PO SCH (09:43)
[2020-09-06] MEDS: Doxazosin Mesylate 4 MG TAB PO SCH (09:44)
[2020-09-06] MEDS: Glimepiride 1 MG TAB PO SCH (09:44)
[2020-09-06] MEDS: Enoxaparin Sodium 40 MG/0.4 ML SYRINGE SC SCH (09:45)
[2020-09-06] MEDS: Diazepam 5 MG TAB PO SCH (09:46)
[2020-09-06] MEDS: methylPREDNISolone Sod Succ 40 MG VIAL IVP SCH (09:47)
[2020-09-06] MEDS: hydrALAZINE 25 MG TAB PO SCH (09:51)
[2020-09-06 11:35] VITALS: BP 165/72; TEMP 98
[2020-09-07] MEDS ORDERED: predniSONE 20 MG TAB PO SCH (08:00)
--- NOTE | 2020-09-08 02:41 | DIS ---
DATE OF ADMISSION: 09/03/2020 DATE OF DISCHARGE: 09/06/2020 DISCHARGE DIAGNOSES: As of the followin. Acute metabolic encephalopathy. 2. Shortness of breath. 3. Acute hypercapnic respiratory failure. 4. Chronic kidney disease. 5. Possible chronic obstructive pulmonary disease exacerbation. HOSPITAL COURSE: The patient is a 75-year-old male, who initially presented to the hospital on 09/03. He was noted to be significantly combative at the Urgent Care, was given ketamine and then was brought here. He was noted to have elevated CO2 levels on the ABG. His COVID test was negative. At this time, he was noted to have some wheezing. He underwent cardiac and lung workup. He had a brain CT, which did not show any acute abnormalities. He also had an echocardiogram, which indicated an EF of 55% to 60% and just indicates some diastolic dysfunction. He had a chest x-ray, which did not show any acute abnormalities. His BNP was completely normal. At this time, the patient was put on some steroids and antibiotics. He continued to improve through the hospital stay. He was also on BiPAP at night. However, during our treatment in the hospital, he became very aggressive, wanting to leave. I did call the son. I spoke with the son in details on the phone and also personally explaining the patient's situation and that he will require to see a napper fixer and will probably require sleep study. The patient only smokes a pipe and he has never been diagnosed with chronic obstructive pulmonary disease. He may require further lung testing. The patient also was noted to have significant aggressive behavior. At this time, I did recommend starting on some Seroquel, which I did. However, I asked the [facility] to [facility] since he does have a history of PTSD and depression. MEDICATIONS: The patient's home medications were as of the followin. just for seven days. 2. Cefdinir 300 mg q.12 hours. 3. Prednisone 40 mg for the next three days. 4. Melatonin 5 mg at bedtime. 5. K-Dur 20 mEq daily. 6. Allopurinol 300 mg daily. 7. Atorvastatin 20 mg daily. 8. Cardura 8 mg daily. 9. Multivitamin 1 p.o. daily. 10. Prozac 40 mg daily. 11. Valium 5 mg daily. 12. Lasix 20 mg daily. 13. Amaryl 1 mg daily. 14. Hydralazine 25 mg daily. 15. Pregabalin 300 mg daily. 16. Trazodone 100 mg at bedtime. 17. Tylenol as needed. PHYSICAL EXAMINATION: VITAL SIGNS: On discharge; temperature of 98.0, 82, 16, 95% on room air, 165/72. GENERAL: He is awake, alert, and oriented x3. Appears a little agitated, however, is calm during my examination. CV: S1, S2 present. No murmurs, rubs, or gallops. LUNGS: Clear to auscultation. No rhonchi or wheezes noted. ABDOMEN: Soft, nontender. Bowel sounds are present x2. I did ambulate the patient. He did not require any oxygenation. His sats were 95% to 98% on room air. Again, he will be discharged home. I have greatly emphasized that he will need close followup with his primary and also a napper fixer. Job ID: [id number]
== END 2020-09-06 11:15 | disposition home or self-care (01) | DRG 189 ==
LOC: ERS 05:43 → ERHOLD 07:23 → IMCU/EMU 13:51 → 2NO 09-05 22:27
PROVIDERS: ADMIT Internal Medicine; ATTEND Internal Medicine
PROC: 5A09357 Assistance with Respiratory Ventilation, Less than 24 Consecutive Hours, Continuous Positive Airway Pressure (ICD-10-PCS; principal; 2020-09-03)
DX: J96.02 Acute respiratory failure with hypercapnia (principal); G93.41 Metabolic encephalopathy; J44.1 Chronic obstructive pulmonary disease with (acute) exacerbation; J96.01 Acute respiratory failure with hypoxia; E11.42 Type 2 diabetes mellitus with diabetic polyneuropathy; F31.9 Bipolar disorder, unspecified; G47.33 Obstructive sleep apnea (adult) (pediatric); N18.9 Chronic kidney disease, unspecified; I12.9 Hypertensive chronic kidney disease with stage 1 through stage 4 chronic kidney disease, or unspecified chronic kidney disease; E11.22 Type 2 diabetes mellitus with diabetic chronic kidney disease; F41.9 Anxiety disorder, unspecified; F43.10 Post-traumatic stress disorder, unspecified; Z79.51 Long term (current) use of inhaled steroids; Z79.84 Long term (current) use of oral hypoglycemic drugs; Z79.899 Other long term (current) drug therapy
CPT/HCPCS: 36415; 36416; 36600; 70450; 80053; 80306; 82607; 82805; 83605; 84443; 85025; 87040; 93306; 94640; 94660; 96372; 96374; J0456; J1650; J1940; J2060; J2920; J7050; J7611; J7620

== ENCOUNTER 2021-04-26 11:36 | Outpatient (CLI) | payer OTHER | END 2021-04-26 11:37 | disposition home or self-care (01) | LOC: PET 11:36 | PROVIDERS: ATTEND Psychiatry & Neurology Neurology | DX: G31.1 Senile degeneration of brain, not elsewhere classified (principal) | CPT/HCPCS: 78803; A9552 ==

== ENCOUNTER 2021-08-16 13:47 | Outpatient (CLI) | payer MEDICARE, OTHER ==
[2021-08-16 14:52] LABS: Anion Gap 13 mmol/L (10-20); BUN (Urea Nitrogen) 34 mg/dL (8.4-25.7); Calc. Creatinine Clearance 0 mL/min (70-130); Calcium 8.6 mg/dL (7.8-10.44); Carbon Dioxide 22 mmol/L (23-31); Chloride 115 mmol/L (98-107); Glucose 78 mg/dL (83-110); Sodium 145 mmol/L (136-145)
[2021-08-17 00:42] LABS: SARS-CoV-2 PCR by NAA Not Detected (NotDetected)
== END 2021-08-16 13:48 | disposition home or self-care (01) ==
LOC: LABBT 13:47
PROVIDERS: ATTEND Neurological Surgery
DX: Z01.818 Encounter for other preprocedural examination (principal); M48.061 Spinal stenosis, lumbar region without neurogenic claudication; R06.00 Dyspnea, unspecified; Z20.822 Contact with and (suspected) exposure to COVID-19
CPT/HCPCS: 80048; U0003; U0005; 93005; 93010

== ENCOUNTER 2021-08-19 06:44 | Day surgery (SDC) | payer OTHER ==
[2021-08-18 11:39] VITALS: BMI 33.7
[2021-08-19] MEDS ORDERED: ceFAZolin 2 GM/DEX 5% 100 ML BAG ONE ×2 (06:54→11:56)
[2021-08-19] MEDS ORDERED: EPINEPHrine 1 MG/ML AMP ONE (07:08)
[2021-08-19] MEDS ORDERED: Bupivacaine PF 0.5% 30 ML VIAL ONE (07:08)
[2021-08-19] MEDS ORDERED: Thrombin 5000 UNITS/5 ML VIAL ONE (07:08)
[2021-08-19] MEDS ORDERED: Fentanyl 100 MCG/2 ML VIAL ONE (07:15)
[2021-08-19] MEDS ORDERED: Phenylephrine 10 MG/ML VIAL ONE (07:15)
[2021-08-19] MEDS ORDERED: Ketamine 50 MG/ML (10ML VIAL) ONE (07:32)
[2021-08-19] MEDS ORDERED: Ondansetron PF 4 MG/2 ML Vial ONE (07:34)
[2021-08-19] MEDS ORDERED: PROPOFOL 200 MG/20 ML VIAL ONE (07:34)
[2021-08-19] MEDS ORDERED: Rocuronium Bromide 10 MG/ML (10ML VIAL) ONE (07:34)
[2021-08-19] MEDS ORDERED: Lidocaine 1% PF 5 ML VIAL ONE (07:34)
[2021-08-19] MEDS ORDERED: Vecuronium 10 MG VIAL ONE (07:34)
[2021-08-19] MEDS ORDERED: Albuterol Sulfate HFA (OR ONLY) ONE (07:34)
[2021-08-19] MEDS ORDERED: Dexamethasone 20 MG/5 ML VIAL ONE (07:34)
[2021-08-19] MEDS ORDERED: Ketorolac Tromethamine 30 MG/ML VIAL ONE (07:34)
[2021-08-19] MEDS ORDERED: Glycopyrrolate 0.2 MG/ML 5 ML SYRINGE ONE ×2 (07:34)
[2021-08-19] MEDS ORDERED: SUGAMMADEX SODIUM 200 MG/2 ML VIAL ONE (08:32)
[2021-08-19] MEDS ORDERED: Tamsulosin HCl 0.4 MG CAP ONE (10:21)
[2021-08-19] MEDS ORDERED: HYDROcodone/Acetaminophen 5/325 mg Tablet ONE (12:09)
== END 2021-08-19 14:17 | disposition home or self-care (01) ==
LOC: SDC 06:44
PROVIDERS: ATTEND Neurological Surgery
PROC: 00NY0ZZ Release Lumbar Spinal Cord, Open Approach (ICD-10-PCS; principal; 2021-08-19)
DX: M48.062 Spinal stenosis, lumbar region with neurogenic claudication (principal); M54.16 Radiculopathy, lumbar region; E11.9 Type 2 diabetes mellitus without complications; I10 Essential (primary) hypertension; I25.10 Atherosclerotic heart disease of native coronary artery without angina pectoris; N40.0 Benign prostatic hyperplasia without lower urinary tract symptoms; E78.5 Hyperlipidemia, unspecified; M10.9 Gout, unspecified; Z79.01 Long term (current) use of anticoagulants; Z79.84 Long term (current) use of oral hypoglycemic drugs; Z79.899 Other long term (current) drug therapy; Z88.5 Allergy status to narcotic agent; Z88.8 Allergy status to other drugs, medicaments and biological substances
CPT/HCPCS: 76000; J0171; J2370; J3010; S0020

== ENCOUNTER 2022-08-03 12:47 | Outpatient (CLI) | payer MEDICARE, OTHER | END 2022-08-03 12:48 | disposition home or self-care (01) | LOC: TBSIIMAG 12:47 | PROVIDERS: ATTEND Neurological Surgery | DX: M48.062 Spinal stenosis, lumbar region with neurogenic claudication (principal); M47.815 Spondylosis without myelopathy or radiculopathy, thoracolumbar region; M48.05 Spinal stenosis, thoracolumbar region; M47.816 Spondylosis without myelopathy or radiculopathy, lumbar region; M51.36 Other intervertebral disc degeneration, lumbar region; M24.28 Disorder of ligament, vertebrae; M51.26 Other intervertebral disc displacement, lumbar region; Z98.890 Other specified postprocedural states | CPT/HCPCS: 72148 ==

== ENCOUNTER 2022-08-07 02:40 | Inpatient (IN) | payer OTHER ==
[2022-08-07] MEDS ORDERED: Ondansetron PF 4 MG/2 ML Vial IVP PRN ×2 (02:53→20:19)
[2022-08-07] MEDS ORDERED: Acetaminophen 325 MG TAB PO PRN (02:53)
[2022-08-07 02:57] VITALS: BMI 31.4
[2022-08-07] MEDS ORDERED: Dextrose 50% Abboject 50 ML SYRINGE SLOW IVP PRN ×2 (03:00→04:54)
[2022-08-07] MEDS ORDERED: HumaLOG 300 UNITS/3 ML VIAL SC PRN ×2 (03:00)
[2022-08-07] MEDS ORDERED: Dextrose 5% in Water 1,000 ML IV PRN (03:00)
[2022-08-07] MEDS ORDERED: Furosemide 40 MG/4 ML VIAL SLOW IVP SCH (03:00)
[2022-08-07] MEDS ORDERED: Morphine 4 MG/ML VIAL SLOW IVP SCH (03:15)
[2022-08-07] MEDS ORDERED: Pantoprazole 40 MG VIAL IVP SCH (03:15)
[2022-08-07 04:13] LABS: #Eosinphils 0.1 thou/uL (0.0-0.7); #Lymphocytes 1.5 thou/uL (1.20-3.40); #Monocytes 0.7 thou/uL (0.11-0.59); #Neutrophils 4.4 thou/uL (1.40-6.50); %Basophils 0.7 % (0.0-1.0); %Eosinophils 1.3 % (0.0-10.0); %Lymphocytes 21.9 % (21.0-51.0); %Neutrophils 66.2 % (42.0-75.0); Hemoglobin 6.7 g/dL (14.0-18.0); Mean Corpuscular HGB CONC 32.8 g/dL (32.0-36.0); Mean Corpuscular Hemoglobin 30.3 pg (27.0-31.0); Mean Corpuscular Volume 92.6 fL (78.0-98.0); Mean Platelet Volume 7.9 fL (7.4-10.4); Platelet Count 221 thou/uL (130-400); RBC Distribution Width 14.2 % (11.5-14.5); Red Blood Cell (RBC) Count 2.22 mill/uL (4.70-6.10); White Blood Cell (WBC) Count 6.6 thou/uL (4.8-10.8)
[2022-08-07 04:22] LABS: INR-International Normal Ratio 1.3; PTT 31.5 sec (22.9-36.1); Prothrombin Time 16.4 sec (12.0-14.7)
[2022-08-07 04:34] LABS: Anion Gap 14 mmol/L (10-20); BUN (Urea Nitrogen) 50 mg/dL (8.4-25.7); Calc. Creatinine Clearance 23 mL/min (70-130); Calcium 8.5 mg/dL (7.8-10.44); Carbon Dioxide 17 mmol/L (23-31); Chloride 115 mmol/L (98-107); Estimated GFR 16; Glucose 95 mg/dL (83-110); Iron 25 ug/dL (65-175); Iron Binding Capacity, Total 146 mcg/dL (261-462); Potassium 6.2 mmol/L (3.5-5.1); Sodium 140 mmol/L (136-145)
[2022-08-07] MEDS ORDERED: Calcium Gluc 4.6 MEQ/10 ML (100 MG/ML) SLOW IVP SCH (04:52)
[2022-08-07] MEDS ORDERED: Sodium Bicarb 50 MEQ/50 ML Abboject 8.4% SYRINGE IVP SCH (05:00)
[2022-08-07] MEDS ORDERED: Insulin Regular 300 UNITS/3 ML VIAL IVP SCH (05:00)
[2022-08-07 05:19] LABS: Iron 27 ug/dL (65-175); Iron Binding Capacity, Total 146 mcg/dL (261-462)
[2022-08-07] MEDS ORDERED: Sodium Bicarb 50 MEQ/50 ML VIAL IVP SCH (06:30)
[2022-08-07] MEDS ORDERED: LOKELMA 10 GM PACKET PO SCH (07:37)
[2022-08-07] MEDS ORDERED: Sodium Bicarbonate 150 MEQ in Dextrose 5% in Water 1,000 ML IV SCH (07:45)
[2022-08-07] MEDS: hydrALAZINE 20 MG/ML VIAL SLOW IVP PRN ×2 (10:56→17:05)
[2022-08-07] MEDS: Iron, Sodium Ferric Gluconate 250 MG in Sodium Chloride 0.9% 250 ML 250 ML IVPB SCH (11:30)
[2022-08-07] MEDS: Furosemide 20 MG/2 ML VIAL SLOW IVP SCH (15:01)
[2022-08-07 16:39] LABS: Hemoglobin 8.1 g/dL (14.0-18.0)
[2022-08-07 16:55] LABS: Anion Gap 16 mmol/L (10-20); BUN (Urea Nitrogen) 48 mg/dL (8.4-25.7); Calc. Creatinine Clearance 23 mL/min (70-130); Carbon Dioxide 19 mmol/L (23-31); Chloride 114 mmol/L (98-107); Estimated GFR 16; Glucose 102 mg/dL (83-110); Potassium 4.9 mmol/L (3.5-5.1); Sodium 144 mmol/L (136-145)
[2022-08-07 17:19] LABS: Bilirubin Negative (Negative); Blood, Urine Negative (Negative); Clarity Clear (Clear); Glucose, Urine (Dipstick) Normal (Negative); Ketone, Urine Negative (Negative); Leukocyte Negative Leu/uL (Negative); Nitrite Negative (Negative); Protein, Urine (Dipstick) 50 mg/dL (Neg-Trace); RBC/HPF 0-3 HPF (0-3); Specific Gravity, Urine 1.009 (1.002-1.036); Squamous Epithelial 0-3 HPF (0-3); Urobilinogen Normal mg/dL (Less than 2); WBC/HPF 0-3 HPF (0-3); pH, Urine 5.5 (5.0-9.0)
[2022-08-07 17:23] LABS: Bacteria/HPF 1+ HPF (None Seen)
[2022-08-07 17:24] LABS: Urine Culture Reflex Yes Yes
[2022-08-07 17:49] LABS: Creatinine, Urine 27.47 mg/dL (63-166)
[2022-08-07] MEDS: hydrALAZINE 25 MG TAB PO SCH (20:40)
[2022-08-07] MEDS: Pantoprazole 40 MG VIAL IVP SCH (20:42)
[2022-08-08 00:48] LABS: Hemoglobin 7.7 g/dL (14.0-18.0)
[2022-08-08 03:59] LABS: #Lymphocytes 1.4 thou/uL (1.20-3.40); #Neutrophils 4.7 thou/uL (1.40-6.50); %Basophils 0.4 % (0.0-1.0); %Eosinophils 0.7 % (0.0-10.0); %Monocytes 13.9 % (0.0-10.0); %Neutrophils 65.9 % (42.0-75.0); Hemoglobin 7.5 g/dL (14.0-18.0); Mean Corpuscular HGB CONC 32.5 g/dL (32.0-36.0); Mean Corpuscular Volume 92.3 fL (78.0-98.0); Mean Platelet Volume 7.6 fL (7.4-10.4); Platelet Count 237 thou/uL (130-400); RBC Distribution Width 14.2 % (11.5-14.5); White Blood Cell (WBC) Count 7.1 thou/uL (4.8-10.8)
[2022-08-08 04:23] LABS: Anion Gap 13 mmol/L (10-20); BUN (Urea Nitrogen) 47 mg/dL (8.4-25.7); Calc. Creatinine Clearance 24 mL/min (70-130); Calcium 8.3 mg/dL (7.8-10.44); Carbon Dioxide 22 mmol/L (23-31); Chloride 115 mmol/L (98-107); Estimated GFR 17; Glucose 103 mg/dL (83-110); Potassium 4.9 mmol/L (3.5-5.1); Sodium 145 mmol/L (136-145)
[2022-08-08] MEDS: hydrALAZINE 20 MG/ML VIAL SLOW IVP PRN (05:25)
[2022-08-08] MEDS: Furosemide 20 MG/2 ML VIAL SLOW IVP SCH (05:26)
[2022-08-08 08:34] VITALS: BP 201/82; TEMP 98.2
[2022-08-08] MEDS: hydrALAZINE 25 MG TAB PO SCH (08:50)
[2022-08-08] MEDS: Pantoprazole 40 MG VIAL IVP SCH (08:51)
[2022-08-08] MEDS ORDERED: Epoetin (ESRD) 10,000 UNITS/ML VIAL SC SCH (09:00)
[2022-08-08] MEDS ORDERED: Carvedilol 6.25 MG TAB PO SCH (09:00)
[2022-08-08] MEDS ORDERED: Albumin 25% 25 GM/100 ML BOT IVPB SCH (09:00)
[2022-08-08] MEDS ORDERED: Isosorbide Dinitrate 20 MG TAB PO SCH (09:00)
[2022-08-08] MEDS: Iron, Sodium Ferric Gluconate 250 MG in Sodium Chloride 0.9% 250 ML 250 ML IVPB SCH (09:17)
[2022-08-10] MEDS ORDERED: FLU VACC QS2022-23(65YR UP)/PF 240 MCG/0.7 ML SYRINGE IM ONE (09:00)
== END 2022-08-08 10:15 | disposition left against medical advice (07) | DRG 291 ==
LOC: 2NO 02:40 → OBSVTOIN 02:53
PROVIDERS: ADMIT Internal Medicine; ATTEND Internal Medicine
PROC: 30233N1 Transfusion of Nonautologous Red Blood Cells into Peripheral Vein, Percutaneous Approach (ICD-10-PCS; principal; 2022-08-07)
DX: I13.0 Hypertensive heart and chronic kidney disease with heart failure and stage 1 through stage 4 chronic kidney disease, or unspecified chronic kidney disease (principal); G93.41 Metabolic encephalopathy; I50.33 Acute on chronic diastolic (congestive) heart failure; N17.9 Acute kidney failure, unspecified; D62 Acute posthemorrhagic anemia; E87.20 Acidosis, unspecified; N18.4 Chronic kidney disease, stage 4 (severe); Z20.822 Contact with and (suspected) exposure to COVID-19; Z23 Encounter for immunization; J44.9 Chronic obstructive pulmonary disease, unspecified; E78.5 Hyperlipidemia, unspecified; D63.1 Anemia in chronic kidney disease; N40.0 Benign prostatic hyperplasia without lower urinary tract symptoms; F32.A Depression, unspecified; M54.9 Dorsalgia, unspecified; G89.29 Other chronic pain; G25.81 Restless legs syndrome; F03.90 Unspecified dementia, unspecified severity, without behavioral disturbance, psychotic disturbance, mood disturbance, and anxiety; G47.33 Obstructive sleep apnea (adult) (pediatric); I48.0 Paroxysmal atrial fibrillation; E11.22 Type 2 diabetes mellitus with diabetic chronic kidney disease; D50.9 Iron deficiency anemia, unspecified; Z53.29 Procedure and treatment not carried out because of patient's decision for other reasons; Z79.84 Long term (current) use of oral hypoglycemic drugs; Z79.51 Long term (current) use of inhaled steroids; Z79.899 Other long term (current) drug therapy
CPT/HCPCS: 36415; 36416; 36430; 80048; 81001; 82040; 82570; 83540; 83550; 84156; 84300; 84540; 85025; 85610; 85730; 86850; 86900; 86901; 87086; 93005; 93010; C9113; J0360; J0610; J1815; J1940; J2270; J2916; J7050; J7070; P9016; P9047; Q4081; U0003; U0005

== ENCOUNTER 2023-10-23 13:30 | Outpatient (CLI) | payer MEDICARE ==
[2023-10-23 15:51] LABS: #Basophils 0.1 10x3/uL (0.0-0.2); #Eosinphils 0.3 10x3/uL (0.0-0.5); #Monocytes 0.7 10x3/uL (0.0-1.1); #Neutrophils 5.3 10x3/uL (1.5-8.4); %Eosinophils 3.4 % (0.0-6.0); %Lymphocytes 21.2 % (18.0-47.0); %Monocytes 8.6 % (0.0-10.0); %Neutrophils 65.3 % (40.0-75.0); Hematocrit 21.1 % (38.8-50.0); Hemoglobin 6.9 g/dL (13.5-17.5); Mean Corpuscular HGB CONC 32.7 g/dL (32.0-36.0); Mean Corpuscular Hemoglobin 31.1 pg (27.0-33.0); Mean Platelet Volume 10.4 fl (7.4-10.4); Platelet Count 195 10x3/uL (150-450); RBC Distribution Width 15.2 % (11.5-14.5); Red Blood Cell (RBC) Count 2.22 10x6/uL (4.32-5.72); White Blood Cell (WBC) Count 8.1 10x3/uL (3.5-10.5)
[2023-10-23 16:02] LABS: Anion Gap 18 mmol/L (10-20); BUN (Urea Nitrogen) 86 mg/dL (8.4-25.7); Calc. Creatinine Clearance 0 mL/min (70-130); Calcium 8.2 mg/dL (7.8-10.44); Chloride 118 mmol/L (98-107); Estimated GFR 7; Glucose 98 mg/dL (83-110); Potassium 5.5 mmol/L (3.5-5.1); Sodium 139 mmol/L (136-145)
[2023-10-23 16:11] LABS: Carbon Dioxide 9 mmol/L (23-31)
== END 2023-10-23 13:31 | disposition home or self-care (01) ==
LOC: LABBT 13:30
PROVIDERS: ATTEND Orthopaedic Surgery
DX: Z01.818 Encounter for other preprocedural examination (principal); M12.9 Arthropathy, unspecified
CPT/HCPCS: 80048; 85025; 93005; 93010

== ENCOUNTER 2024-11-19 19:56 | Emergency (ER) | payer OTHER ==
[2024-11-19 20:48] LABS: #Basophils 0.04 10x3/uL (0.0-0.2); %Eosinophils 4.1 % (0.0-10.0); %Lymphocytes 16.8 % (21.0-51.0); %Neutrophils 57.1 % (42.0-75.0); Hematocrit 36.9 % (42.0-52.0); Hemoglobin 11.9 g/dL (14.0-18.0); Mean Corpuscular HGB CONC 32.2 g/dL (32.0-36.0); Mean Corpuscular Hemoglobin 31.4 pg (27.0-31.0); Mean Corpuscular Volume 97.4 fL (78.0-98.0); Mean Platelet Volume 10.6 fL (7.4-10.4); Platelet Count 112 10x3/uL (130-400); RBC Distribution Width 15.2 % (11.5-14.5); Red Blood Cell (RBC) Count 3.79 mill/uL (4.70-6.10)
[2024-11-19 20:54] LABS: ALT (SGPT) 7 U/L (Less than 45); AST (SGOT) 16 U/L (11-34); Albumin 3.4 g/dL (3.1-4.5); Alkaline Phosphatase 73 U/L (40-110); Anion Gap 19 mmol/L (10-20); BUN (Urea Nitrogen) 16 mg/dL (8.4-25.7); Bilirubin, Total 0.4 mg/dL (0.3-1.2); Calc. Creatinine Clearance 0 mL/min (70-130); Calcium 8.7 mg/dL (7.8-10.44); Carbon Dioxide 26 mmol/L (23-31); Chloride 102 mmol/L (98-107); Estimated GFR 17; Globulin 2.7 g/dL (2.4-3.5); Glucose 96 mg/dL (83-110); Protein, Total 6.1 g/dL (5.8-8.1); Sodium 143 mmol/L (136-145)
[2024-11-19 20:57] LABS: Troponin I 0.137 ng/mL (< 0.028)
[2024-11-20 07:20] LABS: HBSAB Concentration Less than 8.00 mIU/mL; HBsAg Index 0.19 S/CO (0-0.99); Hep B Core Total Ab NONREACTIVE (NonReactive); Hep B Core Total Index 0.04 S/CO (0-0.79); Hep B Surf AB NONREACTIVE (NonReactive); Hep B Surf Ag NONREACTIVE S/CO (NonReactive); Hep C IgG Ab NONREACTIVE S/CO (NonReactive); Hep C Index 0.06 S/CO (0-0.79)
== END 2024-11-19 20:51 | disposition left against medical advice (07) ==
LOC: ERS 19:56
DX: R07.9 Chest pain, unspecified (principal); Z53.21 Procedure and treatment not carried out due to patient leaving prior to being seen by health care provider; I12.9 Hypertensive chronic kidney disease with stage 1 through stage 4 chronic kidney disease, or unspecified chronic kidney disease; N18.9 Chronic kidney disease, unspecified; Z95.0 Presence of cardiac pacemaker
CPT/HCPCS: 36415; 71045; 80053; 84484; 85025; 86704; 86706; 86803; 87340; 93005

== ENCOUNTER 2024-11-19 23:02 | Inpatient (IN) | payer MEDICARE, OTHER ==
[2024-11-20 01:08] LABS: #Basophils 0.04 10x3/uL (0.0-0.2); %Eosinophils 1.9 % (0.0-10.0); %Lymphocytes 23.1 % (21.0-51.0); %Monocytes 18.8 % (0.0-10.0); Hematocrit 40.5 % (42.0-52.0); Hemoglobin 12.9 g/dL (14.0-18.0); Mean Corpuscular HGB CONC 31.9 g/dL (32.0-36.0); Mean Corpuscular Hemoglobin 31.6 pg (27.0-31.0); Mean Corpuscular Volume 99.3 fL (78.0-98.0); Mean Platelet Volume 10.4 fL (7.4-10.4); Platelet Count 117 10x3/uL (130-400); RBC Distribution Width 15.2 % (11.5-14.5); Red Blood Cell (RBC) Count 4.08 mill/uL (4.70-6.10)
[2024-11-20] MEDS ORDERED: Morphine 4 MG/ML VIAL ONE ×2 (01:30→02:07)
[2024-11-20] MEDS ORDERED: Ondansetron PF 4 MG/2 ML Vial ONE ×2 (01:31→02:07)
[2024-11-20 01:34] LABS: ALT (SGPT) 9 U/L (Less than 45); AST (SGOT) 18 U/L (11-34); Albumin 3.8 g/dL (3.1-4.5); Alkaline Phosphatase 79 U/L (40-110); Anion Gap 21 mmol/L (10-20); BUN (Urea Nitrogen) 19 mg/dL (8.4-25.7); Bilirubin, Total 0.5 mg/dL (0.3-1.2); Calc. Creatinine Clearance 0 mL/min (70-130); Calcium 9.3 mg/dL (7.8-10.44); Carbon Dioxide 23 mmol/L (23-31); Chloride 103 mmol/L (98-107); Estimated GFR 15; Globulin 3.1 g/dL (2.4-3.5); Glucose 107 mg/dL (83-110); Potassium 4.2 mmol/L (3.5-5.1); Protein, Total 6.9 g/dL (5.8-8.1); Sodium 143 mmol/L (136-145)
[2024-11-20 01:51] LABS: Troponin I 0.164 ng/mL (< 0.028)
[2024-11-20] MEDS ORDERED: Aspirin Chewable 81 MG TAB ONE (03:11)
[2024-11-20] MEDS ORDERED: Furosemide 40 MG (4 mL) VIAL ONE (03:13)
[2024-11-20 04:22] LABS: Troponin I 0.164 ng/mL (< 0.028)
[2024-11-20] MEDS ORDERED: Ondansetron PF 4 MG/2 ML Vial IVP PRN (08:28)
[2024-11-20] MEDS ORDERED: Ipratropium/Albuterol 3 ML NEB NEB PRN (08:59)
[2024-11-20 14:43] VITALS: BMI 27.5
[2024-11-20] MEDS: Heparin 5,000 UNITS/ML VIAL SC SCH (14:59)
[2024-11-20] MEDS: Pregabalin 50 MG CAP PO SCH ×2 (14:59→20:36)
[2024-11-20] MEDS: Aspirin 81 mg Enteric Coated Tablet PO SCH ×2 (15:27)
[2024-11-20] MEDS: Donepezil HCl 10 MG TAB PO SCH (20:36)
[2024-11-20] MEDS: busPIRone HCl 5 MG TAB PO SCH (20:36)
[2024-11-20] MEDS: Atorvastatin Calcium 40 MG TAB PO SCH (20:36)
[2024-11-21 05:45] LABS: Anion Gap 17 mmol/L (10-20); BUN (Urea Nitrogen) 22 mg/dL (8.4-25.7); Calc. Creatinine Clearance 18 mL/min (70-130); Calcium 8.6 mg/dL (7.8-10.44); Carbon Dioxide 27 mmol/L (23-31); Chloride 103 mmol/L (98-107); Estimated GFR 15; Glucose 85 mg/dL (83-110); Potassium 4.5 mmol/L (3.5-5.1); Sodium 142 mmol/L (136-145)
[2024-11-21 05:54] LABS: #Basophils 0.04 10x3/uL (0.0-0.2); %Basophils 0.9 % (0.0-1.0); %Eosinophils 5.1 % (0.0-10.0); %Lymphocytes 38.8 % (21.0-51.0); %Monocytes 21.2 % (0.0-10.0); %Neutrophils 33.8 % (42.0-75.0); Hematocrit 38.4 % (42.0-52.0); Hemoglobin 12.1 g/dL (14.0-18.0); Mean Corpuscular HGB CONC 31.5 g/dL (32.0-36.0); Mean Corpuscular Hemoglobin 31.3 pg (27.0-31.0); Mean Corpuscular Volume 99.2 fL (78.0-98.0); Mean Platelet Volume 10.3 fL (7.4-10.4); Platelet Count 101 10x3/uL (130-400); RBC Distribution Width 14.9 % (11.5-14.5); Red Blood Cell (RBC) Count 3.87 mill/uL (4.70-6.10)
[2024-11-21] MEDS: Sevelamer Carbonate 800 MG TAB PO SCH ×2 (08:50→14:21)
[2024-11-21] MEDS: Aspirin 81 mg Enteric Coated Tablet PO SCH (08:51)
[2024-11-21] MEDS: HYDROcodone/Acetaminophen 7.5/325 mg Tablet PO PRN (17:54)
[2024-11-21] MEDS: traZODone HCl 50 MG TAB PO SCH (21:10)
[2024-11-21] MEDS: hydrALAZINE 25 MG TAB PO PRN (21:10)
[2024-11-21] MEDS: busPIRone HCl 5 MG TAB PO SCH (21:10)
[2024-11-21] MEDS: Melatonin 3 MG TAB PO SCH (21:10)
[2024-11-21] MEDS: Atorvastatin Calcium 20 MG TAB PO SCH (21:10)
[2024-11-21] MEDS: Pregabalin 50 MG CAP PO SCH (21:11)
[2024-11-21] MEDS: Acetaminophen 325 MG TAB PO PRN (21:11)
[2024-11-21] MEDS: Doxazosin Mesylate 4 MG TAB PO SCH (21:11)
[2024-11-21] MEDS ORDERED: GUAIFENESIN SF SOLN 200 MG/10 ML UDCUP PO PRN (22:42)
[2024-11-21] MEDS ORDERED: guaiFENesin ER 600 MG TAB PO SCH (23:00)
[2024-11-21] MEDS: Benzonatate 100 MG CAP PO PRN (23:03)
[2024-11-22] MEDS: FLUoxetine HCl 20 MG CAP PO SCH (08:23)
[2024-11-22] MEDS: Mirabegron ER 25 MG ER.TAB PO SCH (08:23)
[2024-11-22] MEDS: Donepezil HCl 10 MG TAB PO SCH (08:24)
[2024-11-22] MEDS: Sacubitril 49 MG/Valsartan 51 MG TABLET PO SCH (08:24)
[2024-11-22] MEDS: Finasteride 5 MG TAB PO SCH (08:24)
[2024-11-22] MEDS: guaiFENesin/DM ER PO SCH (08:25)
[2024-11-22] MEDS: Cyanocobalamin (Vitamin B-12) 1,000 MCG TAB PO SCH (08:25)
[2024-11-22] MEDS: Allopurinol 100 MG TAB PO SCH (08:25)
[2024-11-22] MEDS: Ferrous Sulfate 325 MG TAB PO SCH (08:25)
[2024-11-22] MEDS ORDERED: guaiFENesin ER 600 MG TAB PO SCH (09:00)
[2024-11-22 11:25] VITALS: TEMP 97.4
[2024-11-22 14:28] VITALS: BP 127/61
== END 2024-11-22 15:30 | disposition home or self-care (01) | DRG 291 ==
LOC: ERS 23:02 → T4-A 11-20 07:49 → OBSVTOIN 11-21 14:49
PROVIDERS: ADMIT Internal Medicine; ATTEND Hospitalist
DX: I13.2 Hypertensive heart and chronic kidney disease with heart failure and with stage 5 chronic kidney disease, or end stage renal disease (principal); I50.23 Acute on chronic systolic (congestive) heart failure; N18.6 End stage renal disease; J96.01 Acute respiratory failure with hypoxia; E78.5 Hyperlipidemia, unspecified; G62.9 Polyneuropathy, unspecified; K21.9 Gastro-esophageal reflux disease without esophagitis; I25.10 Atherosclerotic heart disease of native coronary artery without angina pectoris; G31.84 Mild cognitive impairment of uncertain or unknown etiology; E11.22 Type 2 diabetes mellitus with diabetic chronic kidney disease; F41.9 Anxiety disorder, unspecified; M10.9 Gout, unspecified; Z95.0 Presence of cardiac pacemaker; Z99.2 Dependence on renal dialysis; Z88.5 Allergy status to narcotic agent; Z95.5 Presence of coronary angioplasty implant and graft; Z90.89 Acquired absence of other organs
CPT/HCPCS: 36415; 36416; 71045; 74176; 80048; 80053; 83880; 84484; 85025; 86704; 86706; 86803; 87340; 87428; 87633; 87798; 93005; 93010; 93306; 96374; 96375; 97139; J1644; J1940; J2270; J2405